=== PATIENT | female | born 1995 | race African-American/Black ===

== ENCOUNTER 2017-04-20 22:15 | Emergency (ER) | payer MEDICAID ==
[~2017-04-20] VITALS: Ht 165.1 cm; Wt 57.6 kg
[~2017-04-20 22:15] MED LIST: ALBUPOW26
[2017-04-20 22:30] VITALS: BP 102/69
== END 2017-04-20 22:40 | disposition left against medical advice (07) ==
LOC: ER 22:24
DX: T17.1XXA Foreign body in nostril, initial encounter (principal); Z53.21 Procedure and treatment not carried out due to patient leaving prior to being seen by health care provider; X58.XXXA Exposure to other specified factors, initial encounter; Y93.89 Activity, other specified; Y99.2 Volunteer activity; Y92.89 Other specified places as the place of occurrence of the external cause

== ENCOUNTER 2018-10-26 16:57 | Emergency (ER) | payer MEDICAID ==
[~2018-10-26] VITALS: Ht 165.1 cm; Wt 59.0 kg
[2018-10-26 17:08] VITALS: BP 92/52
== END 2018-10-26 21:16 | disposition home or self-care (01) ==
LOC: ER 16:57
DX: B86 Scabies (principal)

== ENCOUNTER 2020-03-20 16:15 | Emergency (ER) | payer SELFPAY ==
[~2020-03-20] VITALS: Ht 160 cm; Wt 61.2 kg
[2020-03-20 16:15] VITALS: BP 95/62
== END 2020-03-20 17:46 | disposition home or self-care (01) ==
LOC: ER 16:15
DX: J40 Bronchitis, not specified as acute or chronic (principal); F41.9 Anxiety disorder, unspecified
CPT/HCPCS: 71045

== ENCOUNTER 2021-11-13 21:36 | Emergency (ER) | payer OTHER ==
[~2021-11-13] VITALS: Ht 162.6 cm; Wt 67.1 kg
[2021-11-13 21:37] VITALS: BP 117/49
[2021-11-14] MEDS ORDERED: IBUPROFEN 600 MG TAB PO ONE (03:15)
== END 2021-11-14 03:23 | disposition home or self-care (01) ==
LOC: ER 21:39
DX: M25.511 Pain in right shoulder (principal); Z79.899 Other long term (current) drug therapy
CPT/HCPCS: 81025

== ENCOUNTER 2022-01-09 10:24 | Emergency (ER) | payer OTHER ==
[~2022-01-09] VITALS: Ht 160 cm; Wt 68.0 kg
[2022-01-09 11:47] LABS: Basophils # (auto) 0.1 10 ^3/uL (0-0.2); Basophils % (auto) 3.4 % (0.0-2.0); Hematocrit 37.5 % (36.0-46.0); Hemoglobin 12.3 g/dL (12.2-16.2); Lymphocytes # (auto) 1.5 10 ^3/uL (0.4-5.4); Lymphocytes % (auto) 35.5 % (10.0-50.0); Mean Corpuscular Hemoglobin 29.1 pg (28.0-32.0); Mean Corpuscular Volume 88.3 fL (80.0-100.0); Monocytes # (auto) 0.4 10 ^3/uL (0-1.3); Monocytes % (auto) 10.4 % (0.0-12.0); Nucleated Red Blood Cells % 0.3 %; Red Blood Cells 4.24 10^6/uL (4.0-5.20); Red Cell Distribution Width 13.2 % (11.8-14.3); White Blood Cell 4.2 10^3/uL (4.4-10.8)
[2022-01-09 12:04] LABS: Eosinophils # (auto) 0.5 10 ^3/uL (0-0.8); Neutrophils # (auto) 1.5 10 ^3/uL (1.6-8.6); Neutrophils % (auto) 35.6 % (37.0-80.0)
[2022-01-09 12:06] LABS: Albumin 3.2 g/dL (3.4-5.0); BUN/Creatinine Ratio 10.3; Calcium 8.4 mg/dL (8.5-10.1); Potassium 4.1 mmol/L (3.5-5.1)
[2022-01-09 12:10] LABS: Bilirubin, Total 0.1 mg/dL (0.2-1.0); Total Protein 6.3 g/dL (6.4-8.2)
[2022-01-09 13:40] VITALS: BP 106/70
== END 2022-01-09 13:45 | disposition home or self-care (01) ==
LOC: ER 10:24
DX: R07.89 Other chest pain (principal); R22.43 Localized swelling, mass and lump, lower limb, bilateral; Z90.89 Acquired absence of other organs; Z79.899 Other long term (current) drug therapy
CPT/HCPCS: 36415; 71046; 80053; 84484; 85025; 85379; 93005

== ENCOUNTER 2022-07-17 23:29 | Emergency (ER) | payer OTHER ==
[~2022-07-17] VITALS: Ht 167.6 cm; Wt 67.6 kg
[2022-07-17] MEDS ORDERED: ALBU108A5 IN (23:46)
[2022-07-17] MEDS ORDERED: PRED20TA2 PO (23:46)
[2022-07-18] MEDS ORDERED: ALBU108A5 IN ×2 (00:16→00:19)
[2022-07-18] MEDS ORDERED: PRED20TA2 PO ×2 (00:16→00:19)
[2022-07-18] MEDS ORDERED: AZITTAB PO ×2 (00:16→00:18)
[2022-07-18 00:29] VITALS: BP 91/55
== END 2022-07-18 00:35 | disposition home or self-care (01) ==
LOC: ER 23:29
DX: J45.909 Unspecified asthma, uncomplicated (principal); Z76.0 Encounter for issue of repeat prescription
CPT/HCPCS: 71045

== ENCOUNTER 2022-10-09 11:27 | Emergency (ER) | payer OTHER ==
[~2022-10-09] VITALS: Ht 160 cm; Wt 65.9 kg
[~2022-10-09 11:27] MED LIST changes: +ALBU108A5 IN; +AZITTAB PO; +PRED20TA2 PO
[2022-10-09 13:19] VITALS: BP 108/58
[2022-10-09] MEDS ORDERED: IBUP600T27 PO (14:56)
== END 2022-10-09 15:02 | disposition home or self-care (01) ==
LOC: ER 11:27
DX: S46.912A Strain of unspecified muscle, fascia and tendon at shoulder and upper arm level, left arm, initial encounter (principal); S09.8XXA Other specified injuries of head, initial encounter; W18.09XA Striking against other object with subsequent fall, initial encounter; Y93.89 Activity, other specified; Y92.89 Other specified places as the place of occurrence of the external cause; Y99.8 Other external cause status
CPT/HCPCS: 70450; 73030

== ENCOUNTER 2022-12-01 01:20 | Emergency (ER) | payer OTHER ==
[~2022-12-01] VITALS: Ht 160 cm; Wt 64.7 kg
[~2022-12-01 01:20] MED LIST changes: +IBUP600T27 PO
[2022-12-01 01:42] VITALS: BP 93/61
[2022-12-01] MEDS ORDERED: PRED20TA2 PO (04:07)
== END 2022-12-01 04:22 | disposition home or self-care (01) ==
LOC: ER 01:20
DX: L30.9 Dermatitis, unspecified (principal); Z88.6 Allergy status to analgesic agent; Z88.2 Allergy status to sulfonamides